=== PATIENT | male | born 1965 | race Caucasian/White ===

== ENCOUNTER 2017-08-02 19:17 | Emergency (ER) | payer SELFPAY ==
[2017-08-02] MEDS: IPRATRPIUM/ALBUTEROL 0.5/2.5MG 3 ML NEBU. NEB (20:10)
[2017-08-02] MEDS: methylPREDNISolone SOD SUCC PF 125 MG/2 ML VIAL. IM (20:11)
[2017-08-02] MEDS: cefTRIAXone IM 1 GM VIAL IM (20:12)
== END 2017-08-02 21:12 | disposition home or self-care (01) ==
LOC: ER 21:12
DX: J20.9 Acute bronchitis, unspecified (principal)
CPT/HCPCS: 71046; 94640; 96372; 99284; J0696; J2930; J7620

== ENCOUNTER 2018-05-27 02:56 | Emergency (ER) | payer SELFPAY ==
[~2018-05-27] VITALS: Ht 170.2 cm; Wt 83.9 kg
[~2018-05-27 02:56] MED LIST: ALBU2.5V8 INH; AZIT250T6 PO; PRED20TA PO
[2018-05-27 03:00] VITALS: BP 132/79
[2018-05-27] MEDS ORDERED: IPRATRPIUM/ALBUTEROL 0.5/2.5MG 3 ML NEBU. NEB ONE (03:30)
[2018-05-27] MEDS ORDERED: AZIT250T PO (03:55)
[2018-05-27 03:56] LABS: INFLUENZA A PATIENT POSITIVE (NEGATIVE); INFLUENZA B PATIENT NEGATIVE (NEGATIVE)
--- NOTE | 2018-05-27 03:57 | PHYS DOC ---
Past Medical History Past Medical History: No Pertinent History Past Surgical History: No Surgical History Alcohol Use: Occasionally Drug Use: None Adult General Chief Complaint Chief Complaint: Congestion HPI HPI Patient is a 52-year-old male who presents with complaint of cough, fever, wheezing and body aches. Patient states symptoms have been present for the last 3 days. He is not sure how high his fevers been but has been treating with Tylenol. He denies any chest pain or shortness of breath. He also denies any nausea, vomiting or diarrhea. Review of Systems Review of Systems Constitutional: Positive fever and chills [] HENT: Positive congestion without sore throat [] Respiratory: Positive cough without shortness of breath [] Cardiovascular: No additional information not addressed in HPI [] GI: Denies abdominal pain, nausea, vomiting or diarrhea [] Current Medications Current Medications Current Medications Medications (Trade) Dose Ordered Sig/Antonio Start Time Stop Time Status Last Admin Dose Admin Albuterol/ Ipratropium (Duoneb) 3 ml 1X ONCE 05/27/18 03:30 05/27/18 03:31 DC 05/27/18 03:20 3 ML Allergies Allergies Allergies Coded Allergies Type Severity Reaction Last Updated Verified No Known Drug Allergies 05/17/13 No Physical Exam Physical Exam Constitutional: Well developed, well nourished, no acute distress, non-toxic appearance. [] HENT: Normocephalic, atraumatic, bilateral external ears normal, oropharynx moist, no oral exudates, nose normal. [] Eyes: PERRLA, EOMI, conjunctiva normal, no discharge. [] Neck: Normal range of motion, no tenderness, supple, no stridor. [] Cardiovascular:Heart rate regular rhythm, no murmur [] Lungs & Thorax: Bilateral breath sounds clear to auscultation [] Abdomen: Bowel sounds normal, soft, no tenderness, no masses, no pulsatile masses. [] Skin: Warm, dry, no erythema, no rash. [] Back: No tenderness, no CVA tenderness. [] Extremities: No tenderness, no cyanosis, no clubbing, ROM intact, no edema. [] Neurologic: Alert and oriented X 3, normal motor function, normal sensory function, no focal deficits noted. [] Psychologic: Affect normal, judgement normal, mood normal. [] Current Patient Data Vital Signs Vital Signs Date Time Temp Pulse Resp B/P (MAP) Pulse Ox O2 Delivery O2 Flow Rate FiO2 05/27/18 03:20 Room Air 05/27/18 03:00 99.0 97 20 132/79 (96) 97 99.0 EKG EKG [] Radiology/Procedures Radiology/Procedures [] Impressions: Two-view chest x-ray demonstrates no acute process. Course & Med Decision Making Course & Med Decision Making Pertinent Labs and Imaging studies reviewed. (See chart for details) [] Dragon Disclaimer Dragon Disclaimer This electronic medical record was generated, in whole or in part, using a voice recognition dictation system. Departure Departure Impression: Primary Impression: Acute bronchitis Additional Impression: Influenza A Disposition: HOME, SELF-CARE Condition: STABLE Referrals: NO PCP (PCP) Patient Instructions: Acute Bronchitis, Influenza, Adult Scripts Azithromycin (ZITHROMAX) 250 Mg Tablet 1 PKG PO UD, #6 TAB Prov: POOJA COLES Jr. DO 05/27/18 Problem Qualifiers Primary Impression: Acute bronchitis Bronchitis organism: unspecified organism Qualified Codes: J20.9 - Acute bronchitis, unspecified POOJA COLES Jr. DO May 27, 2018 03:57
[2018-05-27] MEDS ORDERED: AZITHROMYCIN 250 MG TABLET. PO ONE (04:30)
--- NOTE | 2018-05-27 05:53 | RAD ---
EXAM: PA and Lateral Views of the Chest DATE: 05/27/2018 3:20 AM INDICATION: short of air COMPARISON: 08/02/2017 FINDINGS: The heart is not enlarged. Mediastinal and hilar contours are normal. No focal parenchymal airspace opacity. No pleural effusion or pneumothorax. Mild eventration of the right hemidiaphragm. Degenerative changes of the spine are seen. IMPRESSION: No evidence for acute cardiopulmonary process Electronically signed by: Lorenzo Johnson MD (05/27/2018 5:50 AM) [facility] [id number]
== END 2018-05-27 04:05 | disposition home or self-care (01) ==
LOC: ER 02:56
DX: J10.1 Influenza due to other identified influenza virus with other respiratory manifestations (principal); J20.9 Acute bronchitis, unspecified
CPT/HCPCS: 71046; 87804; 94640; 99284; J7620